=== PATIENT | female | born 1980 | race African-American/Black ===

== ENCOUNTER 2017-11-15 13:52 | Emergency (ER) | payer OTHER, BC ==
[~2017-11-15] VITALS: Ht 157.5 cm; Wt 72.6 kg
[2017-11-15] MEDS ORDERED: VALACYCLOVIR500 MG PO (15:38)
[2017-11-15] MEDS ORDERED: LEVONORGESTREL1 EAC2 PO (15:39)
[2017-11-15] MEDS ORDERED: HYDROCODONE-AP1 EAC6 PO (16:59)
[2017-11-15] MEDS ORDERED: FLEXERIL PO (16:59)
[2017-11-15 17:49] VITALS: BP 107/71
== END 2017-11-15 17:50 | disposition home or self-care (01) ==
LOC: ER 13:52
DX: S90.31XA Contusion of right foot, initial encounter (principal); S00.83XA Contusion of other part of head, initial encounter; M54.5 Low back pain; Z88.1 Allergy status to other antibiotic agents; V49.49XA Driver injured in collision with other motor vehicles in traffic accident, initial encounter; Y93.89 Activity, other specified; Y92.89 Other specified places as the place of occurrence of the external cause; Y99.8 Other external cause status

== ENCOUNTER 2018-10-22 11:04 | Emergency (ER) | payer OTHER ==
[~2018-10-22] VITALS: Ht 154.9 cm; Wt 89.4 kg
[~2018-10-22 11:04] MED LIST: FLEXERIL PO; HYDROCODONE-AP1 EAC6 PO; LEVONORGESTREL1 EAC2 PO; VALACYCLOVIR500 MG PO
[2018-10-22 11:25] LABS: URINE BILIRUBIN NEGATIVE (Negative); URINE BLOOD NEGATIVE (Negative); URINE CLARITY CLEAR; URINE COLOR YELLOW; URINE GLUCOSE-RANDOM* NEGATIVE (Negative); URINE KETONES NEGATIVE (Negative); URINE LEUKOCYTES-REFLEX NEGATIVE (Negative); URINE NITRITE-REFLEX NEGATIVE (Negative); URINE PROTEIN (DIPSTICK) NEGATIVE (Negative); URINE SPECIFIC GRAVITY 1.015 (1.005-1.035); URINE UROBILINOGEN 0.2 E.U./dl (0.2-1.0)
[2018-10-22] MEDS ORDERED: MOBIC15 MG PO (12:44)
[2018-10-22] MEDS ORDERED: NORFLEX100 MG PO (12:44)
[2018-10-22 13:30] VITALS: BP 121/69
== END 2018-10-22 13:30 | disposition home or self-care (01) ==
LOC: ER 11:04
PROVIDERS: Emergency Medicine
DX: S39.012A Strain of muscle, fascia and tendon of lower back, initial encounter (principal); S29.012A Strain of muscle and tendon of back wall of thorax, initial encounter; J45.990 Exercise induced bronchospasm; Z88.1 Allergy status to other antibiotic agents; M70.88 Other soft tissue disorders related to use, overuse and pressure other site; Y93.89 Activity, other specified; X58.XXXA Exposure to other specified factors, initial encounter; Y92.89 Other specified places as the place of occurrence of the external cause; Y99.8 Other external cause status